=== PATIENT | male | born 1935 | race Hispanic/Latino ===

== ENCOUNTER 2021-07-10 11:22 | Outpatient (CLI) | payer MEDICARE ==
[2021-07-10 12:33] LABS: Basophils % (Auto) 0.4 % (0.0-1.8); Eosinophils % (Auto) 0.2 % (0.0-4.3); Hematocrit 43.4 % (35.5-45.6); Hemoglobin 14.3 gm/dl (11.8-15.2); Lymphocytes # (Auto) 0.8 K/mm3 (1.2-5.4); Lymphocytes % (Auto) 16.2 % (13.4-35.0); Mean Corpuscular HGB Conc 33 % (32-34); Mean Corpuscular Volume 101 fl (84-94); Monocytes # (Auto) 0.3 K/mm3 (0.0-0.8); Monocytes % (Auto) 5.7 % (0.0-7.3); Platelet Count 152 K/mm3 (140-440); Red Blood Count 4.28 M/mm3 (3.65-5.03); Red Cell Distribution Width 13.2 % (13.2-15.2)
[2021-07-10 13:21] LABS: Alanine Aminotransferase 13 units/L (7-56); Albumin 4.1 g/dL (3.9-5); BUN/Creatinine Ratio 23; Blood Urea Nitrogen 23 mg/dL (9-20); Calcium 9.9 mg/dL (8.4-10.2); Chol/HDL Ratio 2.22 %; HDL Cholesterol 61 mg/dL (40-59); Hemolysis Index 8; LDL Cholesterol,Direct 77 mg/dL (50-130)
[2021-07-13 12:50] LABS: Vitamin D, 25-OH, D2 <4 ng/mL
== END 2021-07-10 11:23 | disposition home or self-care (01) ==
LOC: LAB 11:22
PROVIDERS: ATTEND Internal Medicine
DX: R53.83 Other fatigue (principal); G60.9 Hereditary and idiopathic neuropathy, unspecified; E55.9 Vitamin D deficiency, unspecified; R63.4 Abnormal weight loss; Z00.00 Encounter for general adult medical examination without abnormal findings; Z79.899 Other long term (current) drug therapy
CPT/HCPCS: 36415; 80053; 80061; 82306; 83036; 84443; 85025

== ENCOUNTER 2021-10-30 07:16 | Outpatient (CLI) | payer MEDICARE ==
[2021-10-30 08:29] LABS: Blood Urea Nitrogen 24 mg/dL (9-20)
--- NOTE | 2021-10-30 10:10 | Cat Scan Report ---
CT ABDOMEN AND PELVIS WITH CONTRAST INDICATION / CLINICAL INFORMATION: INTRA-ABDOMINAL AND PELVIC SWELLING. TECHNIQUE: Axial CT images were obtained through the abdomen and pelvis after 100 mL Omnipaque [address] scans at this location are performed using CT dose reduction for ALARA by means of automated exposure control. Oral contrast was also given. COMPARISON: None available. FINDINGS: LOWER CHEST: Mild left basilar and inferior lingular scarring. LIVER: Several tiny hepatic cysts without suspicious lesion or evidence for cirrhosis. GALLBLADDER/BILIARY: No significant abnormality or evidence for biliary obstruction. PANCREAS: No significant abnormality. SPLEEN: No significant abnormality. ADRENALS: No significant abnormality. KIDNEYS/URETERS: Numerous bilateral renal cysts measuring up to 4.3 cm. 5 mm left upper renal pole st one and small 40 mm right midpole stone. Negative for ureteral calculus or hydronephrosis. GI: Scattered colonic diverticulosis without evidence for acute diverticulitis. No other acute bowel inflammation, obstruction or evidence for ischemia. APPENDIX: No significant abnormality. PERITONEUM: No pneumoperitoneum, free peritoneal fluid or loculated fluid collection. LYMPH NODES: Several mildly prominent distal iliac chain and pelvic sidewall lymph nodes. Index node on the left measures 8 mm in short axis diameter (series 2, image 139). AORTA / ARTERIES: No significant abnormality. URINARY BLADDER: Partially decompressed likely accentuating wall thickness. There is also likely mild diffuse wall thickening. Small dependent calcifications. Overall findings may be secondary to urinar y stasis and partial outlet obstruction associated with prostatomegaly. REPRODUCTIVE ORGANS: Severe prostate gland enlargement with heterogeneous enhancement and mass effect along the bladder base. SKELETAL SYSTEM: Suspected benign bone island within the anterior right femoral head. No other destru ctive osseous lesion. ADDITIONAL FINDINGS: None. IMPRESSION: 1. No acute abdominopelvic process. 2. Bilateral nonobstructive nephrolithiasis. Additional small dependent bladder calculi, likely secon natasha to chronic urinary stasis. 3. Mildly enlarged bilateral pelvic sidewall and distal iliac chain lymph nodes. Given the associated severe prostatomegaly, further evaluation by PSA levels recommended to exclude underlying prostate m alignancy. 4. Other mild chronic findings, as detailed above. Signer Name: Luis Mac MD Signed: 10/30/2021 10:06 AM Workstation Name: [employer]
== END 2021-10-30 07:17 | disposition home or self-care (01) ==
LOC: CT 07:16
PROVIDERS: ATTEND Internal Medicine
DX: N20.0 Calculus of kidney (principal); N28.1 Cyst of kidney, acquired; K76.89 Other specified diseases of liver; N40.0 Benign prostatic hyperplasia without lower urinary tract symptoms; K57.30 Diverticulosis of large intestine without perforation or abscess without bleeding; R19.00 Intra-abdominal and pelvic swelling, mass and lump, unspecified site
CPT/HCPCS: 36415; 74177; 82565; 84520; Q9967